=== PATIENT | male | born 1955 | race Caucasian/White ===

== ENCOUNTER 2017-02-26 09:40 | Inpatient (IN) | payer MEDICAID, OTHER ==
[~2017-02-26] VITALS: Ht 142.2 cm; Wt 53.5 kg
[2017-02-26] VITALS (7 sets, daily range): BP systolic 104–116; BP diastolic 60–79
[~2017-02-26 09:40] MED LIST: ARIP10TA8 PO; CITA10TA68 PO; FISH1CAP49 PO; VITAD1000 PO
[2017-02-26 10:05] LABS: BASOPHILS % (AUTO) 0.3 % (0.0-2.0); HEMATOCRIT 47.4 % (41-53); HEMOGLOBIN 16.4 g/dL (13.5-17.5); LYMPHOCYTES # (AUTO) 2.4 K/uL (1.0-4.8); LYMPHOCYTES % (AUTO) 26.4 % (22.0-44.0); MEAN CORPUSCULAR HEMOGLOBIN 33.2 pg (26.0-34.0); MEAN CORPUSCULAR HGB CONC 34.6 G/dL (31.0-37.0); MEAN CORPUSCULAR VOLUME 96 fL (80-100); MONOCYTES # (AUTO) 0.4 K/uL (0.1-1.0); MONOCYTES % (AUTO) 4.5 % (2.0-9.0); NEUTROPHILS # (AUTO) 6.2 K/uL (1.8-7.7); NEUTROPHILS % (AUTO) 67.8 % (40.0-70.0); PLATELET COUNT (AUTO) 227 K/uL (150-450); RED BLOOD CELL COUNT(AUTO) 4.93 MIL/uL (4.50-5.90); RED CELL DISTRIBUTION WIDTH 13.7 % (11.5-14.5); WHITE BLOOD COUNT (AUTO) 9.2 K/uL (4.5-11.0)
[2017-02-26 10:10] LABS: ANION GAP 13 mmol/L (8-16); CALCIUM, TOTAL 8.5 mg/dL (8.8-10.5); CARBON DIOXIDE 25 mmol/L (22-29); CHLORIDE 105 mmol/L (98-107); GLOMERULAR FILTR. RATE CALC > 60 mL/min (>60); POTASSIUM 3.2 mmol/L (3.5-5.1); SODIUM SERUM 143 mmol/L (136-145); UREA NITROGEN, BLOOD 16 mg/dL (7-18)
[2017-02-26 10:16] LABS: ALANINE AMINOTRANSFERASE 59 U/L (12-78); ALBUMIN 4.3 g/dL (3.4-5.0); ASPARTATE AMINOTRANSFERASE 49 U/L (15-37); TOTAL PROTEIN, SERUM 7.1 g/dL (6.4-8.2)
[2017-02-26] MEDS ORDERED: LORazepam 2 MG TABLET PO ONE (11:30)
[2017-02-26] MEDS ORDERED: CITA20TA9 PO (11:31)
[2017-02-26] MEDS ORDERED: HALOPERIDOL 5 MG TABLET PO PRN (12:00)
[2017-02-26] MEDS: LORazepam 2 MG TABLET PO PRN (18:14)
[2017-02-26] MEDS ORDERED: POTASSIUM CHLORIDE 20 MEQ ER TABLET PO ONE (19:15)
[2017-02-26] MEDS: ZOLPIDEM TARTRATE 10 MG TABLET PO PRN (20:32)
[2017-02-27 03:34] VITALS: BP 111/75
[2017-02-27 06:09] VITALS: BP 125/75
[2017-02-27] MEDS ORDERED: INFLUENZA VIRUS VACCINE QVS 2017-18 (3YR+)/PF 60 MCG/0.5 ML SYRINGE IM ONE (06:30)
[2017-02-27] MEDS ORDERED: ONDANSETRON HCL 4 MG TABLET PO PRN (07:45)
[2017-02-27] MEDS ORDERED: LOPERAMIDE HCL 2 MG CAPSULE PO PRN (07:45)
[2017-02-27] MEDS ORDERED: CloNIDine HCL 0.1 MG TABLET PO PRN (07:45)
[2017-02-27] MEDS ORDERED: BENZOCAINE/MENTHOL LOZENGE MM PRN (07:45)
[2017-02-27] MEDS ORDERED: POTASSIUM CHLORIDE 20 MEQ ER TABLET PO ONE (07:45)
[2017-02-27] MEDS ORDERED: ALBUTEROL SULFATE HFA 90 MCG/PUFF 8 GM INHALER IH PRN (07:45)
[2017-02-27] MEDS ORDERED: PETROLATUM,WHITE 71 GM JELLY TP PRN (07:45)
[2017-02-27] MEDS ORDERED: BACITRACIN 28.4 GM OINTMENT TP PRN (07:45)
[2017-02-27] MEDS ORDERED: ACETAMINOPHEN 325 MG TABLET PO PRN (07:45)
[2017-02-27] MEDS ORDERED: MAG HYDROX/AL HYDROX/SIMETH ES 30 ML SUSPENSION UDCUP PO PRN (07:45)
[2017-02-27] MEDS ORDERED: MAGNESIUM HYDROXIDE SUSPENSION 30 ML UDCUP PO PRN (07:45)
[2017-02-27] MEDS ORDERED: IBUPROFEN 600 MG TABLET PO PRN (07:45)
[2017-02-27 08:35] LABS: CHOL/HDL RATIO 5.7 (4.2-7.3)
[2017-02-27 08:49] VITALS: BP 112/70
[2017-02-27] MEDS: CITALOPRAM HYDROBROMIDE 20 MG TABLET PO SCH (09:03)
[2017-02-27] MEDS: ARIPiprazole 10 MG TABLET PO SCH (09:03)
[2017-02-27] MEDS: LORazepam 2 MG TABLET PO PRN ×2 (09:03→13:19)
[2017-02-27 13:26] VITALS: BP 134/104
[2017-02-27 16:00] VITALS: BP 121/81
[2017-02-27 16:40] VITALS: BP 121/81
[2017-02-27] MEDS: ZOLPIDEM TARTRATE 10 MG TABLET PO PRN (20:24)
[2017-02-28 00:01] VITALS: BP 126/83
[2017-02-28 06:48] VITALS: BP_SYST 126; BP_SYST 130; BP_DIAS 77
[2017-02-28 08:01] LABS: POTASSIUM 3.7 mmol/L (3.5-5.1); THYROID STIMULATING HORMONE 2.46 uIU/mL (0.36-3.74)
[2017-02-28 08:33] VITALS: BP 121/79
[2017-02-28] MEDS: LORazepam 2 MG TABLET PO PRN ×2 (08:34→16:20)
[2017-02-28] MEDS: ARIPiprazole 10 MG TABLET PO SCH (08:34)
[2017-02-28] MEDS: CITALOPRAM HYDROBROMIDE 20 MG TABLET PO SCH (08:34)
[2017-02-28 10:11] VITALS: BP 121/79
[2017-02-28 16:00] VITALS: BP 141/79
[2017-02-28 17:31] VITALS: BP 141/79
[2017-02-28] MEDS: ZOLPIDEM TARTRATE 10 MG TABLET PO PRN (20:26)
[2017-03-01 00:30] VITALS: BP 117/89
[2017-03-01 08:24] VITALS: BP 123/80
[2017-03-01 08:25] VITALS: BP 123/80
[2017-03-01] MEDS: CITALOPRAM HYDROBROMIDE 20 MG TABLET PO SCH (09:11)
[2017-03-01] MEDS: CHOLECALCIFEROL (VIT D3) 1,000 UNITS TABLET PO SCH (09:11)
[2017-03-01] MEDS: OMEGA-3/DHA/EPA/FISH OIL 500 MG CAPSULE PO SCH (09:11)
[2017-03-01] MEDS: ARIPiprazole 10 MG TABLET PO SCH (09:11)
[2017-03-01 16:21] VITALS: BP 127/85
[2017-03-01] MEDS: LORazepam 2 MG TABLET PO PRN (17:13)
[2017-03-02 03:04] VITALS: BP 127/74
[2017-03-02] MEDS: LORazepam 2 MG TABLET PO PRN (03:08)
[2017-03-02 08:51] VITALS: BP 111/71
[2017-03-02] MEDS: CITALOPRAM HYDROBROMIDE 20 MG TABLET PO SCH (08:57)
[2017-03-02] MEDS: CHOLECALCIFEROL (VIT D3) 1,000 UNITS TABLET PO SCH (08:57)
[2017-03-02] MEDS: ARIPiprazole 10 MG TABLET PO SCH (08:57)
[2017-03-02] MEDS: OMEGA-3/DHA/EPA/FISH OIL 500 MG CAPSULE PO SCH (08:57)
== END 2017-03-02 13:55 | disposition home or self-care (01) | DRG 754 ==
LOC: EMS 09:42 → B2S 13:05
PROVIDERS: ADMIT Psychiatry & Neurology Psychiatry; ATTEND Psychiatry & Neurology Psychiatry
PROC: 3E0234Z Introduction of Serum, Toxoid and Vaccine into Muscle, Percutaneous Approach (ICD-10-PCS; principal; 2017-02-27)
DX: F32.9 Major depressive disorder, single episode, unspecified (principal); F22 Delusional disorders; R45.851 Suicidal ideations; E55.9 Vitamin D deficiency, unspecified; E78.5 Hyperlipidemia, unspecified; E87.6 Hypokalemia; F10.129 Alcohol abuse with intoxication, unspecified; F41.9 Anxiety disorder, unspecified; G47.00 Insomnia, unspecified; J44.9 Chronic obstructive pulmonary disease, unspecified; K21.9 Gastro-esophageal reflux disease without esophagitis; M19.90 Unspecified osteoarthritis, unspecified site; Z87.891 Personal history of nicotine dependence; Z23 Encounter for immunization; Z79.899 Other long term (current) drug therapy; Z71.41 Alcohol abuse counseling and surveillance of alcoholic
CPT/HCPCS: 82306; 83036; 84132; 84443; 90471; 99285; G0480